=== PATIENT | female | born 1990 | race African-American/Black ===

== ENCOUNTER 2021-04-12 18:01 | Emergency (ER) | payer OTHER ==
[~2021-04-12] VITALS: Ht 160 cm; Wt 95.7 kg
[~2021-04-12 18:01] MED LIST: BACTRIM DS TAB1 EACH PO; MACROBID 100 M100 M1 PO; MOBIC15 MG PO; NORCO 5-325 TA1 EACH PO; ONDANSETRON HCL4 M2 PO; PHENERGAN 25 MG25 M1 PO; POTASSIUM20 PO; PREDNISONE 20 M20 MG PO; PRENATAL COMPL1 EACH PO; PROMS25 WY RECTAL; SALINE NASAL SP30 ML NS; SLOW-MAG64 MG PO; TESSALON PERLE100 MG PO
[2021-04-12 18:06] VITALS: BP 140/78
== END 2021-04-12 18:40 | disposition short-term general hospital (02) ==
LOC: ER 18:01
DX: O47.03 False labor before 37 completed weeks of gestation, third trimester (principal); Z3A.35 35 weeks gestation of pregnancy; Z79.899 Other long term (current) drug therapy